=== PATIENT | male | born 1995 | race Caucasian/White ===

== ENCOUNTER 2016-10-04 14:42 | Emergency (ER) | payer BC, MEDICAID ==
[~2016-10-04] VITALS: Ht 175.3 cm; Wt 68.0 kg
[2016-10-04] MEDS ORDERED: PROZ20CA11 PO (16:01)
[2016-10-04 17:16] LABS: AUTOMATED NEUTROPHIL # 5.9 TH/MM3 (1.8-7.7); BASOPHIL # 0.1 TH/MM3 (0-0.2); BASOPHIL % 0.6 % (0.0-2.0); EOSINOPHIL # 0.1 TH/MM3 (0-0.4); EOSINOPHIL % 0.8 % (0.0-4.0); HEMATOCRIT 47.6 % (39.0-51.0); HEMO FLAGS DIFF FINAL; LYMPH % 18.8 % (9.0-44.0); LYMPHOCYTE # 1.6 TH/MM3 (1.0-4.8); MEAN CELL VOLUME 91.2 FL (80.0-100.0); MEAN CORPUSCULAR HEMOGLOBIN 30.3 PG (27.0-34.0); MEAN CORPUSCULAR HGB CONC 33.2 % (32.0-36.0); MONO % 10.5 % (0.0-8.0); NEUT % 69.3 % (16.0-70.0); PLATELET COUNT 280 TH/MM3 (150-450); RED BLOOD COUNT 5.22 MIL/MM3 (4.50-5.90); WHITE BLOOD COUNT 8.4 TH/MM3 (4.0-11.0)
[2016-10-04 17:25] LABS: AMPHETAMINE, URINE NEG (NEG); BARBITURATES, URINE NEG (NEG); COCAINE, URINE NEG (NEG)
[2016-10-04 17:34] LABS: ANION GAP 7 MEQ/L (5-15); BICARBONATE 27.3 MEQ/L (21.0-32.0); BLOOD UREA NITROGEN 8 MG/DL (7-18); CHLORIDE 105 MEQ/L (98-107); GLOMERULAR FILTRATION RATE 101 ML/MIN (>89); POTASSIUM 3.9 MEQ/L (3.5-5.1); SODIUM (NA) 139 MEQ/L (136-145)
[2016-10-04 17:44] VITALS: BP 139/67; PULSE 87; RESP 18; O2SAT 98
--- NOTE | 2016-10-04 20:18 | PD ---
HPI Chief Complaint: Psychiatric Symptoms Time Seen by Provider: 20:15 Travel History International Travel<30 days: No Contact w/Intl Traveler<30days: No Traveled to known affect area: No History of Present Illness HPI 21-year-old male with history of depression and anxiety presents to the emergency department under a Barth act for psychiatric evaluation following an argument with his grandparents. Patient does not wish to discuss what was said but says that he said things he "did not mean." Patient denies suicidal or homicidal ideations. Denies illicit drug use. Denies any acute medical needs at this time. PFSH Past Medical History Hx Anticoagulant Therapy: No ADHD: No Anxiety: Yes Depression: Yes Cancer: No Cardiovascular Problems: No Chemotherapy: No Cerebrovascular Accident: No Diabetes: No Patient Takes Glucophage: No Diminished Hearing: No Glaucoma: No Hepatitis: No Hiatal Hernia: No Hypertension: No Psychiatric: No Respiratory: No Integumentary: Yes (ECZEMA) Migraines: No Seizures: No Thyroid Disease: No Ulcer: No Tetanus Vaccination: > 5 Years ?: Not Past Surgical History Abdominal Surgery: No Appendectomy: No Cardiac Surgery: No Cholecystectomy: No Ear Surgery: Yes (Hx Tubes in ears) Endocrine Surgery: No Eye Surgery: No Genitourinary Surgery: No Gynecologic Surgery: No Hysterectomy: No Pacemaker: No Thoracic Surgery: No Tonsillectomy: Yes Family History Family Hypercholesterolemia: Yes (PATERNAL GRANDMOTHER) Social History Alcohol Use: No (Patient denies.) Tobacco Use: No (States no longer does.) Substance Use: Yes (Marijuanna Weekly per pt. ) Allergies-Medications (Allergen,Severity, Reaction): Coded Allergies: Benadryl (Verified Allergy, Severe, Anaphylaxis, 10/04/16) PT STATED "I DONT KNOW WHAT HAPPENS I CAN NOT TAKE IT". Uncoded Allergies: DEET (Allergy, Intermediate, SEVERE RASH, 07/12/10) Reported Meds & Prescriptions Reported Meds & Active Scripts Active Reported Prozac (Fluoxetine HCl) 20 Mg Cap 20 Mg PO DAILY Review of Systems Except as stated in HPI: all other systems reviewed are Neg Physical Exam Narrative GENERAL: Well-nourished male patient, no acute distress SKIN: Focused skin assessment warm/dry. HEAD: Atraumatic. Normocephalic. EYES: Pupils equal and round. No scleral icterus. No injection or drainage. ENT: No nasal bleeding or discharge. Mucous membranes pink and moist. NECK: Trachea midline. No JVD. CARDIOVASCULAR: Regular rate and rhythm. No murmur appreciated. RESPIRATORY: No accessory muscle use. Clear to auscultation. Breath sounds equal bilaterally. GASTROINTESTINAL: Abdomen soft, non-tender, nondistended. Hepatic and splenic margins not palpable. MUSCULOSKELETAL: No obvious deformities. No clubbing. No cyanosis. No edema. NEUROLOGICAL: Awake and alert. No obvious cranial nerve deficits. Motor grossly within normal limits. Normal speech. Data Data Last Documented VS Vital Signs Date Time Temp Pulse Resp B/P Pulse Ox O2 Delivery O2 Flow Rate FiO2 10/04/16 17:44 87 18 139/67 98 Room Air Orders Complete Blood Count With Diff (10/04/16 16:05) Basic Metabolic Panel (Bmp) (10/04/16 16:05) Psych Screen (10/04/16 16:05) Drug Screen, Random Urine (10/04/16 16:05) Alcohol (Ethanol) (10/04/16 16:05) Diet Regular Basic (10/04/16 Dinner) Labs Laboratory Tests Test 10/04/16 16:45 White Blood Count 8.4 TH/MM3 Red Blood Count 5.22 MIL/MM3 Hemoglobin 15.8 GM/DL Hematocrit 47.6 % Mean Corpuscular Volume 91.2 FL Mean Corpuscular Hemoglobin 30.3 PG Mean Corpuscular Hemoglobin 33.2 % Concent Red Cell Distribution Width 13.0 % Platelet Count 280 TH/MM3 Mean Platelet Volume 9.2 FL Neutrophils (%) (Auto) 69.3 % Lymphocytes (%) (Auto) 18.8 % Monocytes (%) (Auto) 10.5 % Eosinophils (%) (Auto) 0.8 % Basophils (%) (Auto) 0.6 % Neutrophils # (Auto) 5.9 TH/MM3 Lymphocytes # (Auto) 1.6 TH/MM3 Monocytes # (Auto) 0.9 TH/MM3 Eosinophils # (Auto) 0.1 TH/MM3 Basophils # (Auto) 0.1 TH/MM3 CBC Comment DIFF FINAL Differential Comment Sodium Level 139 MEQ/L Potassium Level 3.9 MEQ/L Chloride Level 105 MEQ/L Carbon Dioxide Level 27.3 MEQ/L Anion Gap 7 MEQ/L Blood Urea Nitrogen 8 MG/DL Creatinine 0.95 MG/DL Estimat Glomerular Filtration 101 ML/MIN Rate Random Glucose 84 MG/DL Calcium Level 9.4 MG/DL Urine Opiates Screen NEG Urine Barbiturates Screen NEG Urine Amphetamines Screen NEG Urine Benzodiazepines Screen NEG Urine Cocaine Screen NEG Urine Cannabinoids Screen POS Ethyl Alcohol Level LESS THAN 3 MG/DL MDM Medical Decision Making Medical Screen Exam Complete: Yes Emergency Medical Condition: Yes Medical Record Reviewed: Yes Differential Diagnosis Mood disorder versus personality disorder versus adjustment reaction disorder Narrative Course 21-year-old male presents to the emergency department under Barth act for psychiatric evaluation. Patient appears well and without stress. Denies suicidal homicidal ideations. Lab work is without acute concern. Patient is medically cleared to undergo psychiatric screening for further evaluation and disposition. Mental health screening discussed with the patient. Psychiatric screen ordered. Diagnosis Primary Impression: Adjustment reaction Qualified Code: F43.20 - Adjustment disorder, unspecified type Condition: Fozia Jurado Oct 04, 2016 20:17
[2016-10-05 02:12] VITALS: BP 108/59; PULSE 74; RESP 16; O2SAT 97
[2016-10-05 06:08] VITALS: BP 116/69; PULSE 71; RESP 18; O2SAT 99
--- NOTE | 2016-10-05 12:00 | PD.PSY.CON ---
Provisional Diagnosis Admission Date Glendo I. Adjustment disorder with disturbance of conduct, cannabis use disorder, history of depression Glendo II. Deferred Glendo III. No medical history Glendo IV. Aggressive behavior with grandparents Glendo V. 56 History of Present Illness Service Psychiatry Consult Requested By Primary Care Physician No Primary Care Physician HPI The patient is a 21-year-old man, domiciled with grandparents, unemployed, single with psychiatric history of depression and anxiety, cannabis use disorder, previous psychiatric hospitalizations here in [place] in in 2012 in the [facility], active outpatient psychiatric care in [facility], [facility] in Prozac 20 mg daily, significant medical history, who presents to the emergency department under a Barth act for psychiatric evaluation following an argument with his grandparents. Patient does not wish to discuss what was said but says that he said things he "did not mean." Patient denies depressive symptoms, he denies anxiety, he denies paranoia, denies delusions of reference, denies visual and auditory hallucinations. Patient says that he respected a lot his grandparents, but sometimes they have disagreement. He says that he understands that he has been watching too much TV and he is willing to negotiate with his grandmother finding a job. Patient denies suicidal or homicidal ideations. He is oriented 3. Reports daily use of cannabis. Denies use of alcohol and other illicit drugs. Review of Systems Constitutional: DENIES: Diaphoretic episodes, Fatigue, Fever, Weight gain, Weight loss, Chills, Dizziness, Change in appetite, Night Sweats Endocrine: DENIES: Heat/cold intolerance, Polydipsia, Polyuria, Polyphagia Eyes: DENIES: Blurred vision, Diplopia, Eye inflammation, Eye pain, Vision loss , Photosensitivity, Double Vision Ears, nose, mouth, throat: DENIES: Tinnitus, Hearing loss, Vertigo, Nasal discharge, Oral lesions, Throat pain, Hoarseness, Ear Pain, Running Nose, Epistaxis, Sinus Pain, Toothache, Odynophagia Respiratory: DENIES: Apneas, Cough, Snoring, Wheezing, Hemoptysis, Sputum production, Shortness of breath Cardiovascular: DENIES: Chest pain, Palpitations, Syncope, Dyspnea on Exertion , PND, Lower Extremity Edema, Orthopnea, Claudication Gastrointestinal: DENIES: Abdominal pain, Black stools, Bloody stools, Constipation, Diarrhea, Nausea, Vomiting, Difficulty Swallowing, Anorexia Musculoskeletal: DENIES: Joint pain, Muscle aches, Stiffness, Joint Swelling, Back pain, Neck pain Integumentary: DENIES: Abnormal pigmentation, Nail changes, Pruritus, Rash Hematologic/lymphatic: DENIES: Bruising, Lymphadenopathy Immunologic/allergic: DENIES: Eczema, Urticaria Neurologic: DENIES: Abnormal gait, Headache, Localized weakness, Paresthesias, Seizures, Speech Problems, Tremor, Poor Balance Psychiatric: DENIES: Anxiety, Confusion, Mood changes, Depression, Hallucinations, Agitation, Suicidal Ideation, Homicidal Ideation, Delusions Past Family Social History Coded Allergies: Benadryl (Verified Allergy, Severe, Anaphylaxis, 10/04/16) PT STATED "I DONT KNOW WHAT HAPPENS I CAN NOT TAKE IT". Uncoded Allergies: DEET (Allergy, Intermediate, SEVERE RASH, 07/12/10) Reported Medications Fluoxetine (Prozac)20 Mg Cap20 Mg PO DAILY #30 CAP Ref 0 10/04/16 Family History He says that his mother had depression Social History Patient was born and raised in [place], he lives in [place] with grandparents, he single, unemployed, highest level of education is 12th grade Patient's Strengths (min. 2) Family support Physical Exam No tremors, no ideas, no stiffness, no psychomotor retardation or agitation Vital Signs Vital Signs Date Time Temp Pulse Resp B/P Pulse Ox O2 Delivery O2 Flow Rate FiO2 10/05/16 06:08 71 18 116/69 99 Room Air Lab Results Labs Laboratory Tests Test 10/04/16 16:45 White Blood Count 8.4 TH/MM3 Red Blood Count 5.22 MIL/MM3 Hemoglobin 15.8 GM/DL Hematocrit 47.6 % Mean Corpuscular Volume 91.2 FL Mean Corpuscular Hemoglobin 30.3 PG Mean Corpuscular Hemoglobin 33.2 % Concent Red Cell Distribution Width 13.0 % Platelet Count 280 TH/MM3 Mean Platelet Volume 9.2 FL Neutrophils (%) (Auto) 69.3 % Lymphocytes (%) (Auto) 18.8 % Monocytes (%) (Auto) 10.5 % Eosinophils (%) (Auto) 0.8 % Basophils (%) (Auto) 0.6 % Neutrophils # (Auto) 5.9 TH/MM3 Lymphocytes # (Auto) 1.6 TH/MM3 Monocytes # (Auto) 0.9 TH/MM3 Eosinophils # (Auto) 0.1 TH/MM3 Basophils # (Auto) 0.1 TH/MM3 CBC Comment DIFF FINAL Differential Comment Sodium Level 139 MEQ/L Potassium Level 3.9 MEQ/L Chloride Level 105 MEQ/L Carbon Dioxide Level 27.3 MEQ/L Anion Gap 7 MEQ/L Blood Urea Nitrogen 8 MG/DL Creatinine 0.95 MG/DL Estimat Glomerular Filtration 101 ML/MIN Rate Random Glucose 84 MG/DL Calcium Level 9.4 MG/DL Urine Opiates Screen NEG Urine Barbiturates Screen NEG Urine Amphetamines Screen NEG Urine Benzodiazepines Screen NEG Urine Cocaine Screen NEG Urine Cannabinoids Screen POS Ethyl Alcohol Level LESS THAN 3 MG/DL Mental Status Examination Appearance young man, wearing prescribed glasses, [facility], good hygiene , age appearing, calm and cooperative Speech: Unremarkable Memory: Unremarkable Thought Process: Logical Thought Content: Unremarkable Hallucination Type: None Attention and Concentration: Good Suicidal Ideation: No Previous Suicide Attempts: No Homicidal Ideation: No Insight: Good Affect: Good Mood: Appropriate Motor Activity: Normal gait Assessment & Plan Problem List: (1) Adjustment disorder with disturbance of conduct Assessment & Plan: On psychiatric evaluation today the patient does not present any evidence of objective or subjective concerning, significant or acute symptomatology of depression, anxiety or psychosis. Patient denies suicidal and homicidal ideation, he denies visual and auditory hallucinations. On longitudinal observation in the ER he has been calm, cooperative and easy to deal with. No agitation or aggressive behavior reported. Recent arguments with grandparents was poorly related with acute adjustment and character structure may be exacerbated by cannabis intoxication, rather than a primary major psychiatric condition decompensation. He does not meet criteria for psychiatric admission at this moment. He can continue his psychiatric care as an outpatient in a [facility] act. Continue Paxil 20 mg daily. Extensive support, motivation psycho education provided. Barth act will be lifted. ICD Code: F43.24 Assessment & Plan Estimated LOS: Júnior Lechuga MD Oct 05, 2016 12:00
== END 2016-10-05 09:10 | disposition home or self-care (01) ==
LOC: NEPJ 14:42
DX: F43.20 Adjustment disorder, unspecified (principal); Z79.899 Other long term (current) drug therapy
CPT/HCPCS: 80048; 80307; 85025; 99284